=== PATIENT | female | born 1990 | race Caucasian/White ===

== ENCOUNTER → 2016-07-28 01:30 | Outpatient (CLI) | payer MEDICAID ==
[2015-05-07 08:41] VITALS: BMI 37.9
[~2016-07-28 01:30] MED LIST: HYDROCODON-ACE1 EAC7 PO; IBUPROFEN600 MG PO
[2016-07-28 02:34] LABS: APPEARANCE CLOUDY (CLEAR); COLOR YELLOW (YELLOW)
[2016-07-28 02:35] LABS: BILIRUBIN NEGATIVE (NEGATIVE); GLUCOSE 100 mg/dL (NEGATIVE); KETONE SMALL mg/dL (NEGATIVE); LEUKOCYTE ESTERASE TRACE (NEGATIVE); NITRITE NEGATIVE (NEGATIVE); PROTEIN 2+ mg/dL (NEGATIVE); UROBILINOGEN NORMAL (NORMAL)
[2016-07-28 02:41] LABS: BACTERIA MANY /hpf (NONE SEEN); CALCIUM OXALATE CRYSTALS 0-5 /hpf (NONE SEEN); GRANULAR CAST OCC /lpf (NONE SEEN); HYALINE CAST OCC /lpf (NONE SEEN); MUCUS <1+ /lpf (NONE SEEN); RED CELLS - URINE 0-5 /hpf (0-5)
== END ==
LOC: D.LDO 01:30
PROVIDERS: Obstetrics & Gynecology
DX: Z34.90 Encounter for supervision of normal pregnancy, unspecified, unspecified trimester (principal); H92.01 Otalgia, right ear

== ENCOUNTER 2016-07-28 03:04 | Emergency (ER) | payer MEDICAID ==
[2015-05-07 08:41] VITALS: BMI 37.9
== END 2016-07-28 04:18 | disposition home or self-care (01) ==
LOC: D.ER 03:04
DX: H60.91 Unspecified otitis externa, right ear (principal); E11.9 Type 2 diabetes mellitus without complications; Z3A.31 31 weeks gestation of pregnancy

== ENCOUNTER 2016-09-18 12:00 | Inpatient (IN) | payer MEDICAID ==
[2016-09-18 12:43] LABS: BASOPHILS 0.1 % (0.0-2.0); EOSINOPHILS 0.3 % (0-7); HEMATOCRIT 36.5 % (36.0-48.0); HEMOGLOBIN 11.7 g/dL (12-16); IMMATURE GRANULOCYTES 0.8 % (0-5); LYMPHOCYTES 18.1 % (15-50); MCH 28.1 pg (26.0-34.0); MCHC 32.1 g/dL (31.0-37.0); MCV 87.5 fL (80.0-100.0); MEAN PLATELET VOLUME 10.7 fL (7.4-10.4); NEUTROPHILS 74.7 % (40-80); RBC 4.17 10x6/uL (4.00-5.40); RDW 14.4 % (11.5-14.5); WBC 9.1 10x3/uL (4.8-10.8)
[2016-09-18 12:46] LABS: PLATELET COUNT 156 10x3/uL (130-400)
[2016-09-18 12:57] LABS: ALBUMIN 2.4 g/dL (3.4-5.0); ALKALINE PHOSPHATASE 90 U/L (46-116); ALT (SGPT) 12 U/L (10-68); BILIRUBIN - TOTAL 0.24 mg/dL (0.2-1.3); CALC OSMOLALITY 273 mosm/kg (275-300); CALCIUM 8.6 mg/dL (8.5-10.1); CARBON DIOXIDE 24.3 mmol/L (21.0-32.0); CHLORIDE - SERUM 102 mmol/L (98-107); CREATININE - SERUM 0.7 mg/dL (0.6-1.3); GLUCOSE 108 mg/dL (74-106); POTASSIUM - SERUM 4.2 mmol/L (3.5-5.1); SODIUM 137 mmol/L (136-145); UREA NITROGEN 9 mg/dL (7-18); eGFR NON AFRICAN AMERICAN > 90 mL/min (90-120)
[2016-09-18 13:04] LABS: HEMOGLOBIN A1C 6.5 % (4.8-6.0)
[2016-09-18 13:41] LABS: APPEARANCE CLEAR (CLEAR); BILIRUBIN NEGATIVE (NEGATIVE); COLOR YELLOW (YELLOW); GLUCOSE NEGATIVE (NEGATIVE); KETONE NEGATIVE (NEGATIVE); LEUKOCYTE ESTERASE NEGATIVE (NEGATIVE); NITRITE NEGATIVE (NEGATIVE); PROTEIN TRACE mg/dL (NEGATIVE); UROBILINOGEN NORMAL (NORMAL)
[2016-09-18 13:44] LABS: UDS - AMPHET NEGATIVE QUAL (NEGATIVE); UDS - BARB NEGATIVE QUAL (NEGATIVE); UDS - BENZO NEGATIVE QUAL (NEGATIVE); UDS - COCAINE NEGATIVE QUAL (NEGATIVE); UDS - METH NEGATIVE QUAL (NEGATIVE); UDS - OPIATE POSITIVE QUAL (NEGATIVE); UDS - PCP NEGATIVE QUAL (NEGATIVE); UDS - THC NEGATIVE QUAL (NEGATIVE)
[2016-09-18 15:09] VITALS: BP 128/61; BMI 39.0
--- NOTE | 2016-09-18 19:15 | NUR ---
RN TO PT BS FOR KAT. PT RESTING IN BED IN SEMI-FOWLERS POSITION, WITH EYES CLOSED, IN NO ACUTE DISTRESS. PT AWAKENS EASILY WHEN SPOKEN TO. PT IS A 26YO G5 NOW WITH OF VIABLE FEMALE TODAY @ 1654, @ 38.4 WKS GESTATION. PT WITH NO LACERATIONS OR EPIS. PT WITH SCANT PNC, GBS UNKNOWN, AND UNMEDICATED DIABETIC. AAOX3. HR REGULAR, LUNGS CTAB. ABDOMEN SOFT AND NON TENDER. BS ACTIVE TIMES 4. FUNDUS FIRM AND ML @ U. LOCHIA RUBRA SMALL. PT S/P EPIDURAL FOR PAIN CONTROL IN LABOR. REMAINS IN PLACE BUT IS NOT INFUSING. PT CONT TO C/O WEAKNESS AND NUMBNESS IN LOWER EXTREMITIES BILATERALLY. PT HAS NOT VOIDED SINCE . PT STATES SHE HAS PASSED GAS BUT HAS NOT HAD A BM SINCE . 20UNITS PITOCIN INFUSING VIA PUMP AT 125CC/HR TO EXISTING 18G IV IN RIGHT HAND, NO REDNESS OR EDEMA NOTED AT SITE. PT DENIES ANY NEEDS AT THIS TIME. PT WITH SCHEDULED FSBS'S 2H PP. BED IN LOW POSITION, SIDE RAILS UP TIMES 2, CALL LIGHT AND PHONE IN REACH. WILL CONT TO MONITOR PT STATUS.
[2016-09-18 19:20] VITALS: BP 128/78
--- NOTE | 2016-09-18 20:15 | NUR ---
RN TO PT BS. PT RESTING IN BED, HOLDING INFANT, IN NO ACUTE DISTRESS. FSBS TAKEN, 2H PP, 98. NO ACTION TAKEN. PT STATES SHE FEELS SHE CAN AMBULATE NOW. IV SALINE LOCKED. EPIDURAL REMOVED, TIP INTACT, TIP SHOWN TO PT FOR VERFICATION. PT AMBULATED TO BR WITH MINIMAL ASSISTANCE. PT ABLE TO VOID. PT CLEANED SELF WITH WARM WET WASHCLOTHES. CLEAN GOWN PLACED. CHUCKY PAD AND PANTIES PLACED. PT AMBULATED TO CLEAN PP ROOM WITH NO ASSITANCE. PT ORIENTED TO ROOM. FRESH WATER MUG PROVIDED. INFANT RETURNED TO PT ROOM BY NURSERY RN FOR COUPLET CARE. PT DENIES ANY NEEDS AT THIS TIME. BED IN LOW POSITION, SIDE RAILS UP TIMES 2, CALL LIGHT AND PHONE IN REACH. WILL CONT TO MONITOR PT STATUS.
--- NOTE | 2016-09-18 20:33 | NUR ---
RN CALLED TO PT BS. PT C/O PAIN, RATES 12/20, REQUESTS MEDICATION. 1 TAB IBUPROFEN AND 1 TAB NORCO 5 PROVIDED AT THIS TIME. PT DENIES ANY FURTHER NEEDS AT THIS TIME. BED IN LOW POSITION, SIDE RAILS UP TIMES 2, CALL LIGHT AND PHONE IN REACH. REMAINS AT PT BS FOR COUPLET CARE. WILL CONT TO MONITOR PT STATUS.
--- NOTE | 2016-09-18 22:21 | NUR ---
RN CALLED TO PT BS. REPORT GIVEN TO RN ON INFANT FORMULA FEED. PT DENIES ANY NEEDS AT THIS TIME. BED IN LOW POSITION, SIDE RAILS UP TIMES 2, CALL LIGHT AND PHONE IN REACH. SO AT PT BS FOR SUPPORT AND ASSISTANCE. INFANT REMAINS AT PT BS FOR COUPLET CARE. WILL CONT TO MONITOR PT STATUS.
--- NOTE | 2016-09-18 23:00 | NUR ---
RN CALLED TO PT BS. IV SITE WRAPPED FOR PT TO SHOWER. SHOWER SUPPLIES AND FRESH LINENS PROVIDED TO PT. PT DENIES ANY FURTHER NEEDS AT THIS TIME. BED IN LOW POSITION, SIDE RAILS UP TIMES 2, CALL LIGHT AND PHONE IN REACH. WILL CONT TO MONITOR.
[2016-09-19 00:37] VITALS: BP 138/84
--- NOTE | 2016-09-19 00:38 | NUR ---
RN TO PT BS. VS TAKEN, WNL. PT REQUESTS SPRITE, PROVIDED. PT DENIES ANY FURTHER NEEDS AT THIS TIME. BED IN LOW POSITION, SIDE RAILS UP TIMES 2, CALL LIGHT AND PHONE IN REACH. INFANT REMAINS AT PT BS FOR COUPLET CARE. WILL CONT TO MONITOR PT STATUS.
--- NOTE | 2016-09-19 01:15 | NUR ---
RN CALLED TO PT BS WITH C/O PAIN, RATES 01/20, REQUESTS MEDICATION. 1 TAB NORCO 5 PROVIDED AT THIS TIME. WATER AND ADDITIONAL LINENS PROVIDED TO PT FAMILY. PT DENIES ANY FURTHER NEEDS. BED IN LOW POSITION, SIDE RAILS UP TIMES 2, CALL LIGHT AND PHONE IN REACH. FAMILY AT PT BS TIMES 2 FOR SUPPORT AND ASSISTANCE. REMAINS AT PT BS FOR COUPLET CARE. WILL CONT TO MONITOR PT STATUS.
--- NOTE | 2016-09-19 03:25 | NUR ---
RN CALLED TO PT BS. PT REQUESTS FRESH WATER, PROVIDED WITH ADDITIONAL SPRITE. FORMULA PROVIDED TO MOTHER FOR 0400 FEED. PT DENIES ANY FURTHER NEEDS. BED IN LOW POSITION, SIDE RAILS UP TIMES 2, CALL LIGHT AND PHONE IN REACH. SO REMAINS AT PT BS FOR SUPPORT AND ASSISTANCE. REMAINS AT PT BS FOR COUPLET CARE. WILL CONT TO MONITOR PT STATUS.
--- NOTE | 2016-09-19 04:35 | NUR ---
RN CALLED TO PT ROOM. PT STATES HAS SPIT UP ON BLANKETS AND SHIRT. FRESH BLANKETS AND SHIRT PROVIDED TO PT AT THIS TIME. PT DENIES ANY FURTHER NEEDS. BED IN LOW POSITION, SIDE RAILS UP TIMES 2, CALL LIGHT AND PHONE IN REACH. SO REMAINS AT PT BS FOR SUPPORT AND ASSISTANCE. REMAINS AT PT BS FOR COUPLET CARE. WILL CONT TO MONITOR PT STATUS.
--- NOTE | 2016-09-19 06:18 | NUR ---
RN TO PT BS FOR ROUNDS. PT RESTING IN BED IN SEMI-FOWLERS POSITION, HOLDING , IN NO ACUTE DISTRESS. TRANSPORTED TO NURSERY VIA OPEN CRIB PER PT REQUEST. PT DENIES ANY NEEDS AT THIS TIME. BED IN LOW POSITION, SIDE RAILS UP TIMES 2, CALL LIGHT AND PHONE IN REACH. SO REMAINS AT PT BS FOR SUPPORT AND ASSISTANCE. WILL CONT TO MONITOR PT STATUS.
--- NOTE | 2016-09-19 07:40 | NUR ---
PT PRESSES CALL LIGHT. THIS RN TO ROOM. PT ON TOILET VOIDING, REQUESTS SOMETHING FOR PAIN AND SPRITE. LAB TO ROOM AT THIS TIME FOR ORDERED AM LAB. PT DENIES NEED FOR ASSISTANCE BACK TO BED. WILL RETURN.
[2016-09-19 07:49] VITALS: BP 160/75
[2016-09-19 07:49] LABS: BASOPHILS 0.2 % (0.0-2.0); EOSINOPHILS 0.5 % (0-7); HEMATOCRIT 34.2 % (36.0-48.0); IMMATURE GRANULOCYTES 0.7 % (0-5); LYMPHOCYTES 23.7 % (15-50); MCH 28.2 pg (26.0-34.0); MCHC 32.2 g/dL (31.0-37.0); MCV 87.7 fL (80.0-100.0); MEAN PLATELET VOLUME 10.3 fL (7.4-10.4); MONOCYTES 6.1 % (2-11); NEUTROPHILS 68.8 % (40-80); PLATELET COUNT 145 10x3/uL (130-400); RDW 14.4 % (11.5-14.5)
--- NOTE | 2016-09-19 07:49 | NUR ---
PT IN BED, SUPINE WITH RIGHT TILT. VS OBTAINED, BP NOTED TO BE 160/75. PT RATING PAIN 8/10, CRAMPING IN ABD. WILL REASSESS. SHIFT ASSESSMENT COMPLETED, SEE FLOWSHEET FOR DOC. POC DISCUSSED WITH PT, PLACED ON WHITE BOARD. PT STATES SHE WANTS TO SHOWER, TOWELS AND CLEAN GOWN PROVIDED. AM LABS REVIEWED, PIV REMOVED PER PT REQUEST, BANDAID APPLIED. PT UP TO SHOWER AT THIS TIME.
--- NOTE | 2016-09-19 07:50 | NUR ---
HEAVY LOCHIA AND WHAT TO REPORT DISCUSSED WITH PT, UNDERSTANDING VERBALIZED. FF, ML, U/3. SCANT RUBRA LOCHIA NOTED TO PERIPADS. WILL CONT TO MONITOR.
[2016-09-19 08:05] LABS: WBC 12.5 10x3/uL (4.8-10.8)
--- NOTE | 2016-09-19 08:20 | NUR ---
PT SHOWERED. BED LINENS CHANGED, TRASH TAKEN OUT. PT BACK TO BED. DR PERSAUD IN ROOM DISCUSSING POC AND ASSESSING PT. ORDER RECEIVED FOR DIFLUCAN 150MG PO x1 AND TO CONTINUE FSBS ORDERED. WILL PROCEED ORDERED.
--- NOTE | 2016-09-19 08:31 | NUR ---
PT REQUESTS INFANT TO ROOM AT THIS TIME. THIS RN TRANSFERS TO PT VIA CRIBETTE. PT REPORTS IMPROVEMENT IN PAIN, RATES CRAMPING 5/10 AT THIS TIME. FOB IN ROOM AT BEDSIDE. PT DENIES ANY NEEDS AT THIS TIME. SRUx2, CL IN REACH.
--- NOTE | 2016-09-19 10:06 | NUR ---
DR PERSAUD PHONED AND INFORMED OF FSBS 191. ORDER RECEIVED FOR CONSULT TO DR DIAZ FOR DIABETES MANAGEMENT, START ON GLYBURIDE 5MG PO BID, AND CONTINUE 2 HOUR POST PRANDIAL FSBS. WILL UPDATE PT ON POC AND ADMIN ORDERED.
--- NOTE | 2016-09-19 10:06 | NUR ---
DR PERSAUD STATES IS OK FOR DIABETIC CONSULT TO BE DONE TOMORROW.
--- NOTE | 2016-09-19 12:42 | NUR ---
THIS RN TO ROOM FOR PT CHECK. PT SITTING UP IN BED HOLDING . PT C/O PAIN IN ABD, CRAMPING. PAIN MANAGER FIELD SALES ORDERED, SEE EMAR FOR DOC. PT STATES SHE JUST FINISHED EATING LUNCH, WILL CHECK FSBS IN 2 HOURS.
--- NOTE | 2016-09-19 13:10 | NUR ---
PT UP AMBULATING IN HALLS, DENIES NEEDS.
--- NOTE | 2016-09-19 13:30 | NUR ---
PT BACK TO ROOM, REPORTS IMPROVEMENT IN PAIN. DENIES NEEDS. SRUX2, CL IN REACH.
--- NOTE | 2016-09-19 14:54 | NUR ---
THIS RN TO ROOM FOR 2 HOUR POSTPRANDIAL FSBS. PT LYING IN BED, SUPINE, RESTING WITH EYES CLOSED. PT ALERTS THIS RN ENTERS ROOM. PT STATES SHE IS EXHAUSTED FROM NOT RESTING MUCH LAST NIGHT. FSBS DONE AND NOTED TO BE 64. PT GIVEN AFTERNOON SNACK AND INSTRUCTED TO EAT AND THEN REST. PT VERBALIZES UNDERSTANDING. LIGHTS IN ROOM DIMMED, SRUx2, CL IN REACH. WILL NOTIFY .
--- NOTE | 2016-09-19 15:01 | NUR ---
DR PERSAUD NOTIFIED OF FSBS AND SNACK GIVEN. ORDER RECEIVED TO DECREASE GLYBURIDE DOSE TO 2.5MG PO BID, TO START WITH NEXT DOSE SCHEDULE THIS EVENING.
--- NOTE | 2016-09-19 17:11 | NUR ---
THIS RN TO ROOM TO ADMIN GLYBURIDE WITH MEAL ORDERED. FANS DELIVERING DINNER TRAY AT THIS TIME. PT REQUESTING PAIN MEDICAITON AND INFANT TO ROOM WELL. TRANFERRED TO ROOM VIA CRIBETTE. DIET SPRITE PROVIDED AND PRN PAIN MEDS ADMIN ORDERED FOR PAIN RATED 6/10. PT REPORTS CRAMPING AND ALSO C/O LEFT SIDED PAIN THAT IS BETTER WITH AMBULATION. PT DENIES PASSING GAS OR HAVING BM SINCE DELIVERY, DISCUSSED POSSIBILITY OF GAS PAIN. PT AGREEES SHE WOULD LIKE SOMETHING FOR GAS AND WILL AMBULATE MORE AFTER DINNER.
--- NOTE | 2016-09-19 17:15 | NUR ---
PT ADMIN PRN SIMETHICONE ORDERED, SEE PAPER MAR IN PT'S CHART FOR ADMIN RECORD. PT DENIES FURTHER NEEDS AT THIS TIME. POC DISCUSSED FOR PT TO FINISH DINNER AND WILL RECHECK FSBS AT APPROX 1930. PT VERBALIZES UNDERSTANDING AND DENIES NEEDS. SRUx2, CL IN REACH.
--- NOTE | 2016-09-19 19:05 | NUR ---
RN TO PT BS FOR KAT. PT SITTING IN BED, HOLDING INFANT, IN NO ACUTE DISTRESS. PT IS A 26YO G5 NOW WITH OF VIABLE FEMALE YESTERDAY @ 1654. @ 38.4 WKS GESTATION. PT WITH NO LACERATIONS OR EPIS. PT WITH SCANT PNC, GBS UNKNOWN, AND UNMEDICATED DIABETIC. AAOX3. HR REGULAR. LUNGS CTAB. ABDOMEN SOFT AND NON TENDER. BS ACTIVE TIMES 4. FUNDUS FIRM AND ML @ U/-3. LOCHIA RUBRA SCANT. PERINIUM APPEARS TO BE INTACT. CHUCKY PAD AND PANTIES IN PLACE AT THIS TIME. REDDENED AREA PRESENT UNDER PANIS. PT MEDICATED WITH DIFLUCAN THIS AM FOR YEAST INFECTION. PT DENIES DIFFICULTY VOIDING. STATES SHE IS PASSING GAS. DENIES BM SINCE . NO IV ACCESS AT THIS TIME. PT CONT TO C/O ABDOMINAL CRAMPS. PT HAS HAD MINIMAL AMBULATION SINCE . PT ENCOURAGED TO AMBULATE IN HALLS. PT WITH SCHEDULED FSBS'S 2H PP. PT DENIES ANY NEEDS AT THIS TIME. BED IN LOW POSITION, SIDE RAILS UP TIMES 2, CALL LIGHT AND PHONE IN REACH. INFANT REMAINS AT PT BS FOR SUPPORT AND ASSISTANCE. WILL CONT TO MONITOR PT STATUS.
[2016-09-19 19:10] VITALS: BP 138/81
--- NOTE | 2016-09-19 19:35 | NUR ---
2 H[address] PP FSBS 106. DR. PERSAUD NOTIFIED, WILL CONT THE GLYBURIDE 2.5MG BID. WILL CONT TO MONITOR PT STATUS.
--- NOTE | 2016-09-19 21:10 | NUR ---
PT LEAVES FLOOR TO AMBULATE.
--- NOTE | 2016-09-19 21:13 | NUR ---
PT RETURNS TO LABOR AND DELIVERY ROOM. PT C/O PAIN, RATES 12/20. REQUESTS MEDICATION. 1 TAB NORCO 5 PROVIDED AT THIS TIME WITH FRESH SPRITE. PT DENIES ANY FURTHER NEEDS. BED IN LOW POSITION, SIDE RAILS UP TIMES 2, CALL LIGHT AND PHONE IN REACH. SO REMAINS AT PT BS FOR SUPPORT AND ASSISTANCE. WILL CONT TO MONITOR PT STATUS.
--- NOTE | 2016-09-19 22:51 | NUR ---
PT AMBULATING IN [place] IN NO ACUTE DISTRESS. PT DENIES ANY NEEDS AT THIS TIME. WILL CONT TO MONITOR PT STATUS.
--- NOTE | 2016-09-20 00:03 | NUR ---
ROUNDS MADE. PT RESTING WITH EYES CLOSED, DID NOT OPEN EYES WHEN DOOR OPENED. RESPIRATIONS REGULAR, NO S/S OF DISTRESS NOTED. S/O AT BEDSIDE RESTING WITH EYES CLOSED ALSO, NO S/S OF DISTRESS NOTED, RESPIRATIONS REGULAR. BED IN LOW POSITION WITH UPPER SIDE RAILS RAISED X2. CL AND PHONE WITHIN PT REACH ON BEDSIDE TABLE. WILL CONT MONITOR AND ASSIST PRN.
--- NOTE | 2016-09-20 02:36 | NUR ---
RN CALLED TO PT BS. PT RESTING IN BED IN SEMI-FOWLERS POSITION, IN NO ACUTE DISTRESS. PT REQUESTS CUP OF ICE. PROVIDED. PT DENIES ANY OTHER NEEDS AT THIS TIME. BED IN LOW POSITION, SIDE RAILS UP TIMES 2, CALL LIGHT AND PHONE IN REACH. SO REMAINS AT PT BS FOR SUPPORT AND ASSISTANCE. WILL CONT TO MONITOR PT STATUS.
--- NOTE | 2016-09-20 03:30 | NUR ---
PT AMBULATING IN [place] IN NO ACUTE DISTRESS. PT DENIES ANY NEEDS AT THIS TIME.
--- NOTE | 2016-09-20 05:08 | NUR ---
RN TO PT BS FOR ROUNDS. PT RESTING IN BED IN SEMI-FOWLERS POSITION IN NO ACUTE DISTRESS. PT DENIES ANY NEEDS AT THIS TIME. BED IN LOW POSITION, SIDE RAILS UP TIMES 2, CALL LIGHT AND PHONE IN REACH. SO REMAINS AT PT BS FOR SUPPORT AND ASSISTANCE. AT PT BS FOR COUPLET CARE. WILL CONT TO MONITOR PT STATUS.
--- NOTE | 2016-09-20 06:35 | NUR ---
PT CALLS, REQUESTS ADDITIONAL PADS AND FRESH ICE WATER. PROVIDED. PT DENIES ANY FURTHER NEEDS. BED IN LOW POSITION, SIDE RAILS UP TIMES 2, CALL LIGHT AND PHONE IN REACH. SO REMAINS AT PT BS FOR SUPPORT AND ASSISTANCE. AT PT BS FOR COUPLET CARE. WILL CONT TO MONITOR PT STATUS AND GIVE REPORT TO AM SHIFT.
--- NOTE | 2016-09-20 07:10 | NUR ---
dr. martinez on unit, to room, speaking with pt. pt sitting up in the bed, holding . pt denies needs at this time.
--- NOTE | 2016-09-20 07:25 | NUR ---
dietary serves breakfast.
[2016-09-20 07:45] VITALS: BP 153/86
--- NOTE | 2016-09-20 08:30 | NUR ---
pt ambulatory in room, tending to baby. pt has eaten breakfast. fsbs 109. sr up x 2, call light. pt denies other needs at this time.
--- NOTE | 2016-09-20 09:30 | NUR ---
pt calls out and requests pain medication, see emar for all med adm. clean gown and linens provided for pt to shower.
[2016-09-20 09:35] VITALS: BP 130/78
--- NOTE | 2016-09-20 09:45 | NUR ---
pt up to shower, bed linens changed. sr up x 2, call light and phone within reach. pt denies other needs. states she wants to rest after her shower.
--- NOTE | 2016-09-20 11:45 | NUR ---
lunch tray served by dietary, pt denies needs at this time. sr up x 2, call light and phone within reach.
--- NOTE | 2016-09-20 14:00 | NUR ---
to room, pt served fresh ice water, and provided with peripads/panties. pt denies other needs at this time. pt wishes to rest, lights dimmed. sr up x 2, call light and phone within reach.
--- NOTE | 2016-09-20 16:25 | NUR ---
[employer], MANAGER [employer] PHONE # CALLED, , AND DR. GENTILE RETURNS CALL, REPORT GIVEN TO MD THAT DR. PERSAUD WANTS A CONSULT ON THIS PT FOR DIABETES MANAGEMENT. DR. GENTILE REVIEWS BLOOD SUGARS, AND STATES "IT LOOKS LIKE HER BLOOD SUGAR IS FINE ON WHAT SHE IS CURRENTLY ON", MD QUESTIONS PT'S CURRENT INSURANCE STATUS, AND THEN STATES THAT HER CLINIC DOES NOT CURRENTLY TAKE PT'S INSURANCE. DR. PERSAUD INFORMED THAT DR. GENTILE WAS CALLED FOR CONSULT, AND SHE DID REVIEW BLOOD SUGARS, AND STATED HER BS LOOKED FINE ON WHAT SHE IS CURRENTLY ON, BUT THAT HER CLINIC DOES NOT TAKE PT'S INSURANCE. TELEPHONE ORDER RECEIVED TO DISCHARGE PT HOME TO FOLLOW UP WITH HER CURRENT PCP FOR DIABETIC MANAGEMENT.
--- NOTE | 2016-09-20 18:00 | NUR ---
call made to dr. martinez to verify discharge order, and that ibuprofen 600 mg and norco 5mg is the only prescriptions for pt to be discharged home with. states that these are the only two to discharge pt with.
[2016-09-20] MEDS ORDERED: HYDROCODON-ACE1 EAC7 PO (18:04)
[2016-09-20] MEDS ORDERED: IBUPROFEN600 MG PO (18:06)
--- NOTE | 2016-09-20 18:15 | NUR ---
discharge instructions explained to pt, pt denies questions. copy of d/c instructions given to pt, along with both prescriptions for ibuprofen 600 mg and norco 5 mg, instructed pt to call pfw to make 4 week follow up appt with dr. martinez for appt. pt agrees.
--- NOTE | 2016-09-20 18:30 | NUR ---
pt discharged ambulatory, pt refuses wheelchair, in carseat, infant secured into car by pt. pt assisted with belogings by cart, as pt's sig other is in wheelchair. pt leaves hospital in private vehicle with sig other driving.
[2016-09-21 06:13] LABS: RAPID PLASMA REAGIN Non Reactive (Non Reactive)
== END 2016-09-20 18:30 | disposition home or self-care (01) | DRG 774 ==
LOC: D.LDO 12:00 → D.LD 14:13
PROVIDERS: ADMIT Obstetrics & Gynecology
PROC: 10E0XZZ Delivery of Products of Conception, External Approach (ICD-10-PCS; principal; 2016-09-18)
PROC: 10907ZC Drainage of Amniotic Fluid, Therapeutic from Products of Conception, Via Natural or Artificial Opening (ICD-10-PCS; 2016-09-18)
DX: O24.12 Pre-existing type 2 diabetes mellitus, in childbirth (principal); E11.9 Type 2 diabetes mellitus without complications; Z3A.38 38 weeks gestation of pregnancy; Z37.0 Single live birth; O99.214 Obesity complicating childbirth; Z91.19 Patient's noncompliance with other medical treatment and regimen; O69.2XX0 Labor and delivery complicated by other cord entanglement, with compression, not applicable or unspecified

== ENCOUNTER 2016-10-29 19:10 | Emergency (ER) | payer MEDICAID | END 2016-10-29 22:20 | disposition home or self-care (01) | LOC: D.ER 19:10 | DX: E11.40 Type 2 diabetes mellitus with diabetic neuropathy, unspecified (principal) ==

== ENCOUNTER 2016-12-16 17:31 | Emergency (ER) | payer MEDICAID | END 2016-12-16 20:00 | disposition home or self-care (01) | LOC: D.ER 17:31 | DX: K02.9 Dental caries, unspecified (principal); K08.89 Other specified disorders of teeth and supporting structures ==

== ENCOUNTER → 2017-12-30 17:39 | Outpatient (CLI) | payer MEDICAID ==
[2017-12-30 18:01] LABS: APPEARANCE CLEAR (CLEAR); BILIRUBIN NEGATIVE (NEGATIVE); COLOR YELLOW (YELLOW); GLUCOSE 1000 mg/dL (NEGATIVE); KETONE NEGATIVE (NEGATIVE); NITRITE NEGATIVE (NEGATIVE); PROTEIN TRACE mg/dL (NEGATIVE); SPECIFIC GRAVITY 1.025 (1.005-1.020); UROBILINOGEN NORMAL (NORMAL)
[2017-12-30 18:07] LABS: UDS - AMPHET NEGATIVE QUAL (NEGATIVE); UDS - BARB NEGATIVE QUAL (NEGATIVE); UDS - BENZO NEGATIVE QUAL (NEGATIVE); UDS - COCAINE NEGATIVE QUAL (NEGATIVE); UDS - OPIATE NEGATIVE QUAL (NEGATIVE); UDS - PCP NEGATIVE QUAL (NEGATIVE); UDS - THC NEGATIVE QUAL (NEGATIVE)
== END | disposition home or self-care (01) ==
LOC: D.LDO 17:39
PROVIDERS: Obstetrics & Gynecology
DX: O26.893 Other specified pregnancy related conditions, third trimester (principal); Z3A.33 33 weeks gestation of pregnancy

== ENCOUNTER 2018-07-17 13:49 | Emergency (ER) | payer MEDICAID ==
[~2018-07-17] VITALS: Ht 160 cm; Wt 102.1 kg
[2018-07-17 13:55] VITALS: Ht 160 cm; Wt 102.1 kg
[2018-07-17] MEDS ORDERED: AUGMENTIN 875-11 TAB PO (15:16)
[2018-07-17] MEDS ORDERED: TORADOL10 MG PO (15:16)
[2018-07-17 16:00] VITALS: BP 124/87
== END 2018-07-17 15:36 | disposition home or self-care (01) ==
LOC: D.ER 13:49
DX: H66.93 Otitis media, unspecified, bilateral (principal); E11.9 Type 2 diabetes mellitus without complications; G40.909 Epilepsy, unspecified, not intractable, without status epilepticus

== ENCOUNTER 2018-10-10 19:27 | Emergency (ER) | payer MEDICAID ==
[~2018-10-10] VITALS: Ht 160 cm; Wt 100.0 kg
[~2018-10-10 19:27] MED LIST changes: +AUGMENTIN 875-11 TAB PO; +TORADOL10 MG PO
[2018-10-10 19:35] VITALS: BP 114/94; Ht 160 cm; Wt 100.0 kg
== END 2018-10-10 20:43 | disposition home or self-care (01) ==
LOC: D.ER 19:27
DX: O26.892 Other specified pregnancy related conditions, second trimester (principal); Z3A.16 16 weeks gestation of pregnancy

== ENCOUNTER 2019-01-21 16:38 | Outpatient (CLI) | payer MEDICAID ==
[2018-10-10 19:35] VITALS: BMI 39.0
[2019-01-21 18:08] LABS: APPEARANCE CLOUDY (CLEAR); BILIRUBIN NEGATIVE (NEGATIVE); COLOR DK YELLOW (YELLOW); GLUCOSE NEGATIVE (NEGATIVE); KETONE NEGATIVE (NEGATIVE); NITRITE NEGATIVE (NEGATIVE); PROTEIN NEGATIVE (NEGATIVE); UROBILINOGEN NORMAL (NORMAL)
[2019-01-21 18:11] LABS: BACTERIA MANY /hpf (NONE SEEN); RED CELLS - URINE 0-5 /hpf (0-5); YEAST <1+ /hpf (NONE SEEN)
[2019-01-21 18:20] LABS: BASOPHILS 0.1 % (0-2); EOSINOPHILS 0.3 % (0-7); HEMATOCRIT 35.3 % (36.0-48.0); HEMOGLOBIN 11.7 g/dL (12-16); IMMATURE GRANULOCYTES 0.4 % (0-5); LYMPHOCYTES 12.3 % (15-50); MCH 27.1 pg (26.0-34.0); MCHC 33.1 g/dL (31.0-37.0); MCV 81.9 fL (80.0-100.0); MEAN PLATELET VOLUME 10.7 fL (7.4-10.4); MONOCYTES 4.4 % (2-11); NEUTROPHILS 82.5 % (40-80); PLATELET COUNT 146 10x3/uL (130-400); RBC 4.31 10x6/uL (4.00-5.40); RDW 14.8 % (11.5-14.5); WBC 9.3 10x3/uL (4.8-10.8)
[2019-01-21 18:25] LABS: ALBUMIN 2.4 g/dL (3.4-5.0); ALKALINE PHOSPHATASE 85 U/L (46-116); ALT (SGPT) 10 U/L (10-68); BILIRUBIN - TOTAL 0.32 mg/dL (0.2-1.3); CALC OSMOLALITY 269 mosm/kg (275-300); CALCIUM 9.2 mg/dL (8.5-10.1); CARBON DIOXIDE 21.2 mmol/L (21.0-32.0); CHLORIDE - SERUM 101 mmol/L (98-107); CREATININE - SERUM 0.6 mg/dL (0.6-1.3); POTASSIUM - SERUM 4.4 mmol/L (3.5-5.1); PROTEIN - SERUM 6.2 g/dL (6.4-8.2); SODIUM 133 mmol/L (136-145); UREA NITROGEN 7 mg/dL (7-18); eGFR NON AFRICAN AMERICAN > 90 mL/min (90-120)
[2019-01-21 18:30] LABS: GLUCOSE 207 mg/dL (74-106)
--- NOTE | 2019-01-21 19:17 | NUR ---
Zac LIZ RN TO ROOM PER THIS RN REQUEST TO ATTEMPT IV RESTART.
--- NOTE | 2019-01-21 20:07 | NUR ---
CALLED FROM LABOR AND DELIVERY TO DO SUICIDE ASSESSMENT. PATIENT DENIES BEING SUICIDAL OR HAVING EVER BEEN SUICIDAL, SHE REPORTS THAT SHE WAS "HALF ASLEEP" WHEN SHE WAS SCREENED. INFORMATION GIVEN TO HER
[2019-01-21 21:31] LABS: UDS - AMPHET NEGATIVE QUAL (NEGATIVE); UDS - BARB NEGATIVE QUAL (NEGATIVE); UDS - BENZO NEGATIVE QUAL (NEGATIVE); UDS - COCAINE NEGATIVE QUAL (NEGATIVE); UDS - OPIATE NEGATIVE QUAL (NEGATIVE); UDS - PCP NEGATIVE QUAL (NEGATIVE); UDS - THC NEGATIVE QUAL (NEGATIVE)
[2019-01-22 12:45] LABS: AMYLASE - SERUM 22 U/L (25-115); LIPASE 89 U/L (73-393)
[2019-01-22] MEDS ORDERED: LEVEMIR FL100 UNIT/1 SC (12:53)
[2019-01-22] MEDS ORDERED: MACROBID100 MG PO (12:53)
== END 2019-01-22 16:00 | disposition left against medical advice (07) ==
LOC: D.LDO 16:38 → D.LD 20:59 → D.LDO 01-22 16:00
PROVIDERS: ATTEND Student in an Organized Health Care Education/Training Program
DX: O26.899 Other specified pregnancy related conditions, unspecified trimester (principal); Z3A.00 Weeks of gestation of pregnancy not specified

== ENCOUNTER 2019-02-13 18:21 | Inpatient (IN) | payer MEDICAID ==
[~2019-02-13] VITALS: Ht 160 cm; Wt 101.6 kg
[~2019-02-13 18:21] MED LIST changes: +LEVEMIR FL100 UNIT/1 SC; +MACROBID100 MG PO
[2019-02-13 18:50] LABS: HEMATOCRIT 33.6 % (36.0-48.0); MCH 26.4 pg (26.0-34.0); MCHC 32.7 g/dL (31.0-37.0); MCV 80.6 fL (80.0-100.0); MEAN PLATELET VOLUME 10.6 fL (7.4-10.4); RBC 4.17 10x6/uL (4.00-5.40); RDW 15.2 % (11.5-14.5); WBC 11.6 10x3/uL (4.8-10.8)
[2019-02-13 19:06] LABS: UDS - AMPHET NEGATIVE QUAL (NEGATIVE); UDS - BARB NEGATIVE QUAL (NEGATIVE); UDS - BENZO NEGATIVE QUAL (NEGATIVE); UDS - COCAINE NEGATIVE QUAL (NEGATIVE); UDS - OPIATE NEGATIVE QUAL (NEGATIVE); UDS - PCP NEGATIVE QUAL (NEGATIVE); UDS - THC NEGATIVE QUAL (NEGATIVE)
[2019-02-13 20:01] VITALS: BP 150/72; Ht 160 cm; Wt 101.6 kg
[2019-02-14 06:30] VITALS: BP 137/64
[2019-02-15 08:11] LABS: RAPID PLASMA REAGIN Non Reactive (Non Reactive)
== END 2019-02-14 15:30 | disposition home or self-care (01) | DRG 807 ==
LOC: D.LDO 18:21 → D.LD 18:33 → D.WS 18:33
PROVIDERS: ADMIT Obstetrics & Gynecology; ATTEND Obstetrics & Gynecology
PROC: 10E0XZZ Delivery of Products of Conception, External Approach (ICD-10-PCS; principal; 2019-02-13)
PROC: 0HQ9XZZ Repair Perineum Skin, External Approach (ICD-10-PCS; 2019-02-13)
DX: O60.14X0 Preterm labor third trimester with preterm delivery third trimester, not applicable or unspecified (principal); Z37.0 Single live birth; Z3A.33 33 weeks gestation of pregnancy; F19.10 Other psychoactive substance abuse, uncomplicated; O99.214 Obesity complicating childbirth; E66.01 Morbid (severe) obesity due to excess calories; O24.92 Unspecified diabetes mellitus in childbirth; O70.0 First degree perineal laceration during delivery

== ENCOUNTER 2019-11-09 19:21 | Emergency (ER) | payer MEDICAID ==
[~2019-11-09] VITALS: Ht 160 cm; Wt 72.7 kg
[2019-11-09 19:59] VITALS: Ht 160 cm; Wt 72.7 kg
[2019-11-09 20:33] LABS: BILIRUBIN NEGATIVE (NEGATIVE); GLUCOSE 1000 mg/dL (NEGATIVE); KETONE NEGATIVE (NEGATIVE); NITRITE NEGATIVE (NEGATIVE); UROBILINOGEN NORMAL (NORMAL)
[2019-11-09 20:34] LABS: EPITHELIAL CELLS 0-5 /hpf (0-5); RED CELLS - URINE OCC /hpf (0-5)
[2019-11-09 20:35] LABS: BACTERIA MODERATE /hpf (NEGATIVE); YEAST <1+ /hpf (NONE SEEN)
[2019-11-09 20:39] LABS: HCG URINE NEGATIVE (NEGATIVE)
[2019-11-09 20:49] LABS: UDS - AMPHET POSITIVE QUAL (NEGATIVE); UDS - BARB NEGATIVE QUAL (NEGATIVE); UDS - BENZO NEGATIVE QUAL (NEGATIVE); UDS - COCAINE NEGATIVE QUAL (NEGATIVE); UDS - OPIATE POSITIVE QUAL (NEGATIVE); UDS - PCP NEGATIVE QUAL (NEGATIVE); UDS - THC NEGATIVE QUAL (NEGATIVE)
[2019-11-09 21:10] LABS: BASOPHILS 0.1 % (0-2); EOSINOPHILS 0.1 % (0-7); HEMATOCRIT 39.2 % (36.0-48.0); HEMOGLOBIN 12.4 g/dL (12-16); IMMATURE GRANULOCYTES 0.3 % (0-5); LYMPHOCYTES 12.9 % (15-50); MCH 24.5 pg (26.0-34.0); MCHC 31.6 g/dL (31.0-37.0); MCV 77.5 fL (80.0-100.0); MEAN PLATELET VOLUME 9.6 fL (7.4-10.4); MONOCYTES 4.6 % (2-11); PLATELET COUNT 157 10x3/uL (130-400); RBC 5.06 10x6/uL (4.00-5.40); RDW 14.5 % (11.5-14.5); WBC 9.8 10x3/uL (4.8-10.8)
[2019-11-09 21:19] LABS: INR 1.06 (0.85-1.17); PROTIME 13.7 SECONDS (11.6-15.0)
[2019-11-09 21:20] LABS: APTT 29.3 SECONDS (22.8-39.4)
[2019-11-09 22:03] LABS: ALBUMIN 3.1 g/dL (3.4-5.0); ALKALINE PHOSPHATASE 87 U/L (30-120); ALT (SGPT) 25 U/L (10-68); BILIRUBIN - TOTAL 0.43 mg/dL (0.2-1.3); CALC OSMOLALITY 275 mosm/kg (275-300); CALCIUM 9.2 mg/dL (8.5-10.1); CARBON DIOXIDE 27.6 mmol/L (21.0-32.0); CHLORIDE - SERUM 95 mmol/L (98-107); CKMB 0.2 U/L (0.0-3.6); CREATINE KINASE 40 UL (21-215); CREATININE - SERUM 1.3 mg/dL (0.6-1.3); POTASSIUM - SERUM 4.2 mmol/L (3.5-5.1); PROTEIN - SERUM 7.7 g/dL (6.4-8.2); SODIUM 129 mmol/L (136-145); TROPONIN-I < 0.017 ng/mL (0.000-0.060); UREA NITROGEN 12 mg/dL (7-18); eGFR NON AFRICAN AMERICAN 52 mL/min (90-120)
[2019-11-09 22:04] LABS: GLUCOSE 399 mg/dL (74-106)
[2019-11-09] MEDS ORDERED: LEVAQUIN750 MG PO (23:17)
[2019-11-09 23:52] VITALS: BP 137/82
== END 2019-11-09 23:52 | disposition left against medical advice (07) ==
LOC: D.ER 19:21
PROVIDERS: Family Medicine
DX: N12 Tubulo-interstitial nephritis, not specified as acute or chronic (principal); F19.90 Other psychoactive substance use, unspecified, uncomplicated; R10.9 Unspecified abdominal pain; Z91.19 Patient's noncompliance with other medical treatment and regimen; E11.40 Type 2 diabetes mellitus with diabetic neuropathy, unspecified; Z79.4 Long term (current) use of insulin; R50.9 Fever, unspecified; R06.02 Shortness of breath